=== PATIENT | female | born 1995 | race Hispanic/Latino ===

== ENCOUNTER 2020-03-18 | Emergency (ER) | payer SELFPAY | END 2020-03-18 22:26 | disposition home or self-care (01) ==

== ENCOUNTER 2020-03-23 16:07 | Emergency (ER) | payer OTHER, SELFPAY | END 2020-03-23 18:37 | disposition home or self-care (01) | LOC: EDH 16:07 | DX: J18.9 Pneumonia, unspecified organism (principal); Z86.19 Personal history of other infectious and parasitic diseases; Z90.49 Acquired absence of other specified parts of digestive tract ==

== ENCOUNTER 2024-06-04 05:56 | Inpatient (IN) | payer BC, MEDICAID ==
[~2024-06-04] VITALS: Ht 157.5 cm; Wt 70.8 kg
[2024-06-04] VITALS (25 sets, daily range): BP systolic 127–149; BP diastolic 68–85; PULSE 82–108; RESP 12–20; TEMP 96.7–98.9; O2SAT 96
[2024-06-04 06:21] LABS: BASOPHILS # (AUTO) 0.03 K/uL (0.00-0.20); BASOPHILS % (AUTO) 0.2 % (0.0-5.0); EOSINOPHILS # (AUTO) 0.05 K/uL (0.00-0.70); EOSINOPHILS % (AUTO) 0.4 % (0.0-8.0); HEMATOCRIT 38.2 % (36-48); IMMATURE GRANULOCYTE ABSOLUTE 0.04 K/uL (0-1); LYMPHOCYTES # (AUTO) 2.9 K/uL (1.0-4.8); LYMPHOCYTES % (AUTO) 21.8 % (21.0-51.0); MEAN CORPUSCULAR HEMOGLOBIN 31.7 pg (27.0-33.0); MEAN CORPUSCULAR HGB CONC 35.3 g/dL (32.0-36.0); MEAN CORPUSCULAR VOLUME 89.7 fL (79-99); MONOCYTES # (AUTO) 0.6 K/uL (0.1-1.0); MONOCYTES % (AUTO) 4.5 % (3.0-13.0); NEUTROPHILS # (AUTO) 9.8 K/uL (1.8-7.7); NEUTROPHILS % (AUTO) 72.8 % (40.0-77.0); PLATELET COUNT (AUTO) 374 K/uL (130-400); RED BLOOD CELL COUNT(AUTO) 4.26 MIL/uL (4.00-5.50); RED CELL DISTRIBUTION WIDTH 12.2 % (11.0-15.5); WHITE BLOOD COUNT (AUTO) 13.4 K/uL (4.8-10.8)
[2024-06-04] MEDS: 0.9%NACL 1000ML 1,000 ML IV ONE (06:21)
[2024-06-04 06:37] LABS: ALBUMIN 3.7 g/dL (3.5-5.0); BILIRUBIN,TOTAL 0.9 mg/dL (0.2-1.0); CREATININE 0.7 mg/dL (0.5-1.0); POTASSIUM 4.2 mmol/L (3.5-5.1); TOTAL PROTEIN, SERUM 7.1 g/dL (6.0-8.3)
[2024-06-04] MEDS: 0.9%NACL 1000ML 1,000 ML IV SCH (09:43)
[2024-06-04] MEDS: morPHINE 2 MG SYG IVP ONE (09:44)
[2024-06-04] MEDS: ketOROlac 15MG/ML VIAL (15MG/ML) IV ONE (11:37)
[2024-06-04] MEDS: LACTATED RINGERS 1000ML 1,000 ML IV ONE (13:03)
[2024-06-04] MEDS ORDERED: dexaMETHasone SOD PHOSPHATE 10MG/ML 1ML VIAL ONE (13:39)
[2024-06-04] MEDS ORDERED: GLYCOPYRROLATE 0.2 MG/ML 5 ML VIAL ONE (13:39)
[2024-06-04] MEDS ORDERED: LIDOCAINE PF 100MG/5ML (2%) SYRINGE 5ML ONE (13:39)
[2024-06-04] MEDS ORDERED: SUCCINYLCHOLINE CHLORIDE 20 MG/ML 10 ML VIAL ONE (13:39)
[2024-06-04] MEDS ORDERED: proPOFol 10 MG/ML 20ML VIAL IV ONE (13:40)
[2024-06-04] MEDS ORDERED: NEOSTIGMINE METHYLSULFATE 1MG/ML IV ONE (13:40)
[2024-06-04] MEDS ORDERED: MIDAZOLAM HCL 1 MG/ML 2ML VIAL ONE (13:40)
[2024-06-04] MEDS ORDERED: rocuRONium bROMide 10MG/1ML 5ML VL ONE ×2 (13:40→14:54)
[2024-06-04] MEDS ORDERED: FENTanyl CITRate PF 50 MCG/1 ML 2ML VIAL ONE ×2 (13:40→15:50)
[2024-06-04] MEDS ORDERED: ondanSETRON 4MG INJ ONE (13:40)
[2024-06-04] MEDS ORDERED: BUPIvacaine/PF 0.25% 30ML VIAL IJ ONE (13:55)
[2024-06-04] MEDS ORDERED: FENTanyl CITRate PF 50 MCG/1 ML 5ML AMP IV ONE (14:00)
[2024-06-04] MEDS ORDERED: guaiFENesin-DM 200/20MG 10ML PO PRN (14:00)
[2024-06-04] MEDS ORDERED: polyETHYLene GLYCol 3350 17 GM POWD.PACK PO PRN (14:00)
[2024-06-04] MEDS ORDERED: acetaMINOPHEN 325 MG TAB PO PRN (14:00)
[2024-06-04] MEDS ORDERED: guaiFENesin SUGAR-FREE 100 MG/5 ML UDCUP PO PRN (14:00)
[2024-06-04] MEDS: BUPIvacaine/PF 0.25% 30ML VIAL IJ ONE (14:24)
[2024-06-04] MEDS ORDERED: phenylEPHRINE HCL 10 MG/ML 1ML VIAL IV ONE (14:40)
[2024-06-04] MEDS: MEPERIDINE-PF 25 MG/ML SYG ONE (16:53)
[2024-06-04] MEDS ORDERED: PROMETHAZINE HCL 25 MG/ML 1ML AMPULE IM PRN ×2 (18:00)
[2024-06-04] MEDS ORDERED: MEPERIDINE-PF 75 MG/ML SYG IM PRN (18:00)
[2024-06-04] MEDS ORDERED: doCUSate SODIUM 100 MG CAP PO PRN (18:00)
[2024-06-04] MEDS: LACTATED RINGERS 1000ML 1,000 ML IV SCH (18:38)
[2024-06-04] MEDS: FAMOTIDINE 20MG TAB PO SCH (21:14)
[2024-06-04] MEDS: acetaMINOPHEN WITH coDEINE 1 TAB TAB PO PRN (21:48)
[2024-06-05 00:05] LABS: APPEARANCE,URINE CLEAR (CLEAR); BILIRUBIN,URINE NEGATIVE (NEGATIVE); COLOR,URINE COLORLESS (YELLOW); GLUCOSE, URINE (UA) NEGATIVE (NEGATIVE); KETONES,URINE NEGATIVE (NEGATIVE); LEUKOCYTE ESTERASE ,URINE NEGATIVE Leu/uL (NEGATIVE); NITRATE,URINE NEGATIVE (NEGATIVE); OCCULT BLOOD,URINE NEGATIVE (NEGATIVE); PH,URINE 6.5 (5.0-8.0); PROTEIN,URINE NEGATIVE (NEGATIVE); UROBILINOGEN,URINE 0.2 mg/dL (0.2-1.0)
[2024-06-05 00:08] LABS: ADD UA MICROSCOPIC NO
[2024-06-05 03:04] VITALS: BP 116/69; PULSE 98; RESP 20; TEMP 98.8
[2024-06-05 07:01] LABS: HEMATOCRIT 27.2 % (36-48); IMMATURE GRANULOCYTE ABSOLUTE 0.03 K/uL (0-1); LYMPHOCYTES # (AUTO) 1.9 K/uL (1.0-4.8); MEAN CORPUSCULAR HEMOGLOBIN 32.2 pg (27.0-33.0); MEAN CORPUSCULAR HGB CONC 35.3 g/dL (32.0-36.0); MEAN CORPUSCULAR VOLUME 91.3 fL (79-99); MONOCYTES # (AUTO) 1.1 K/uL (0.1-1.0); MONOCYTES % (AUTO) 9.8 % (3.0-13.0); NEUTROPHILS # (AUTO) 8.1 K/uL (1.8-7.7); NEUTROPHILS % (AUTO) 72.9 % (40.0-77.0); PLATELET COUNT (AUTO) 305 K/uL (130-400); RED BLOOD CELL COUNT(AUTO) 2.98 MIL/uL (4.00-5.50); RED CELL DISTRIBUTION WIDTH 12.4 % (11.0-15.5)
[2024-06-05 07:45] VITALS: BP 119/68; PULSE 89; RESP 18; TEMP 98.1
[2024-06-05] MEDS: SIMETHICONE 80 MG TAB.CHEW PO PRN (09:23)
[2024-06-05] MEDS: doCUSate SODIUM 100 MG CAP PO PRN (09:23)
[2024-06-05] MEDS: ibuPROFEN 600 MG TABLET PO PRN (09:24)
[2024-06-05 10:17] LABS: ALBUMIN 2.7 g/dL (3.5-5.0); BILIRUBIN,TOTAL 2.5 mg/dL (0.2-1.0); CREATININE 0.6 mg/dL (0.5-1.0); POTASSIUM 3.7 mmol/L (3.5-5.1); TOTAL PROTEIN, SERUM 5.6 g/dL (6.0-8.3)
[2024-06-05 12:00] VITALS: BP 126/76; PULSE 90; RESP 18; TEMP 97.9
[2024-06-05 16:25] VITALS: BP 125/77; PULSE 87; RESP 18; TEMP 97.9
[2024-06-05 19:58] VITALS: BP 106/49; PULSE 101; RESP 18; TEMP 97.4
[2024-06-05 23:55] VITALS: BP 107/68; PULSE 93; RESP 18; TEMP 98.1
[2024-06-06] MEDS: acetaMINOPHEN 325 MG TAB PO PRN (03:54)
[2024-06-06 04:10] VITALS: BP 111/59; PULSE 86; RESP 18; TEMP 99.1
[2024-06-06 08:00] VITALS: BP 129/79; PULSE 88; RESP 16; TEMP 97.9
[2024-06-06] MEDS: ondanSETRON 4MG INJ IV PRN (08:20)
[2024-06-06] MEDS: BUTALB/ACETAMINOPHEN/CAFFEINE 1 EACH TABLET PO PRN (08:57)
[2024-06-06] MEDS: BisaCODYL 10 MG SUPP.RECT RC PRN (10:25)
[2024-06-06] MEDS: acetaMINOPHEN WITH coDEINE 1 TAB TAB PO PRN (11:25)
[2024-06-06 11:38] VITALS: BP 120/71; PULSE 71; RESP 16; TEMP 97.8
== END 2024-06-06 13:31 | disposition home or self-care (01) | DRG 818 ==
LOC: EDH 05:56 → WSH 05:57
PROVIDERS: ADMIT Internal Medicine Critical Care Medicine; ATTEND Internal Medicine Critical Care Medicine
PROC: 10T20ZZ Resection of Products of Conception, Ectopic, Open Approach (ICD-10-PCS; principal; 2024-06-06)
PROC: 0UB60ZZ Excision of Left Fallopian Tube, Open Approach (ICD-10-PCS; 2024-06-06)
DX: O00.102 Left tubal pregnancy without intrauterine pregnancy (principal); O99.111 Other diseases of the blood and blood-forming organs and certain disorders involving the immune mechanism complicating pregnancy, first trimester; O03.9 Complete or unspecified spontaneous abortion without complication; O99.331 Smoking (tobacco) complicating pregnancy, first trimester; D72.829 Elevated white blood cell count, unspecified; Z3A.01 Less than 8 weeks gestation of pregnancy
CPT/HCPCS: 36415; 76801; 80053; 81003; 81025; 84702; 84703; 85025; 86850; 86900; 86901; 93005; A4351; A4606; G0378; J0330; J1100; J1885; J2001; J2175; J2250; J2270; J2371; J2405; J2704; J2710; J3010; J3490; J7030; J7120; A4215; A4216; A4221; A4222; A4223; A4600; A4649; C1769; J0665; L0625